=== PATIENT | female | born 2000 | race Hispanic/Latino ===

== ENCOUNTER 2024-08-12 01:42 | Day surgery (SDC) | payer BC ==
[2024-08-12] MEDS ORDERED: hydrALAZINE 20 MG/ML VIAL SLOW IVP PRN (01:56)
[2024-08-12 02:06] VITALS: BMI 35.9
[2024-08-12] MEDS: Promethazine 25 MG TAB PO SCH (02:42)
[2024-08-12] MEDS: Acetaminophen 500 MG TAB PO SCH (02:43)
== END 2024-08-12 06:05 | disposition home or self-care (01) ==
LOC: CSHLD/OP 01:42
PROVIDERS: ATTEND Student in an Organized Health Care Education/Training Program
DX: O47.1 False labor at or after 37 completed weeks of gestation (principal); O98.513 Other viral diseases complicating pregnancy, third trimester; B00.9 Herpesviral infection, unspecified; Z79.899 Other long term (current) drug therapy; Z90.89 Acquired absence of other organs; Z3A.39 39 weeks gestation of pregnancy
CPT/HCPCS: 96360; 99283; Q0169

== ENCOUNTER 2024-08-13 14:47 | Inpatient (IN) | payer BC ==
[2024-08-13] MEDS ORDERED: Ondansetron PF 4 MG/2 ML Vial IVP PRN ×2 (15:14→16:33)
[2024-08-13] MEDS ORDERED: Misoprostol 200 MCG TAB PR PRN (15:14)
[2024-08-13] MEDS ORDERED: Acetaminophen 500 MG TAB PO PRN (15:14)
[2024-08-13] MEDS ORDERED: hydrALAZINE 20 MG/ML VIAL SLOW IVP PRN (15:14)
[2024-08-13] MEDS ORDERED: Methylergonovine 0.2 MG/ML VIAL IM PRN (15:14)
[2024-08-13] MEDS ORDERED: Ibuprofen 800 MG TAB PO PRN (15:14)
[2024-08-13] MEDS ORDERED: Lidocaine 1% (PF) 30 ML VIAL SC PRN (15:14)
[2024-08-13] MEDS ORDERED: Promethazine HCl 25 MG/ML VIAL IM PRN ×2 (15:14→16:33)
[2024-08-13] MEDS ORDERED: Carboprost 250 MCG/ML AMP IM PRN (15:14)
[2024-08-13] MEDS ORDERED: Diphenoxylate HCl/Atropine Tablet PO PRN (15:14)
[2024-08-13] MEDS ORDERED: Oxytocin 30 units/NS 500 ML 500 ML IV SCH (15:15)
[2024-08-13 15:48] LABS: Hematocrit 35.4 % (34.9-44.5); Hemoglobin 11.5 g/dL (12.0-15.5); Mean Corpuscular HGB CONC 32.5 g/dL (32.0-36.0); Mean Corpuscular Hemoglobin 25.3 pg (27.0-33.0); Mean Platelet Volume 9.8 fL (7.4-10.4); Platelet Count 270 10x3/uL (150-450); RBC Distribution Width 15.8 % (11.5-14.5); Red Blood Cell (RBC) Count 4.54 10x6/uL (3.90-5.03); White Blood Cell (WBC) Count 12.42 10x3/uL (3.5-10.5)
[2024-08-13 16:32] LABS: HBsAg Index 0.18 S/CO (0-0.99); Hep B Surf Ag - L&D Non-Reactive S/CO (NonReactive); Syphilis Antibody Nonreactive (Nonreactive); Syphilis Antibody Index 0.04 S/CO (<1.00 Non-Reactive)
[2024-08-13] MEDS ORDERED: ePHEDrine Sulfate 50 MG/10 ML VIAL SLOW IVP PRN (16:33)
[2024-08-13] MEDS ORDERED: diphenhydrAMINE 50 MG/ML VIAL IVP PRN (16:33)
[2024-08-13] MEDS ORDERED: Moisturizing Cream (Eucerin) 113 GM JAR TOP PRN (16:33)
[2024-08-13] MEDS ORDERED: Naloxone HCl 0.4 mg/ml Vial IVP PRN ×2 (16:33)
[2024-08-13] MEDS ORDERED: Lactated Ringer's 500 ML IV PRN (16:33)
[2024-08-13] MEDS ORDERED: Communication Order-Pharmacy FS SCH (16:45)
[2024-08-13] MEDS ORDERED: Bupivacaine 0.25% HCL 30 ML VIAL ONE (17:00)
[2024-08-13] MEDS: fentaNYL 2 mcg/Ropivacaine 0.2% Epidural 100 ML CADD EPIDURAL SCH (17:52)
[2024-08-13] MEDS: Lactated Ringer's 1,000 ML IV SCH (17:52)
[2024-08-13] MEDS: fentaNYL/Ropivacaine Epidural 100 ML ONE (17:52)
[2024-08-13 21:54] VITALS: BMI 36.0
[2024-08-14] MEDS: Oxytocin 30 units/NS 500 ML 500 ML IV SCH (01:57)
[2024-08-14] MEDS ORDERED: hydrALAZINE 20 MG/ML VIAL SLOW IVP PRN (02:19)
[2024-08-14] MEDS ORDERED: Bisacodyl 10 MG SUPP PR PRN (02:19)
[2024-08-14] MEDS ORDERED: Milk Of Magnesia 30 ML UDCUP PO PRN (02:19)
[2024-08-14] MEDS ORDERED: diphenhydrAMINE 25 MG CAP PO PRN (02:19)
[2024-08-14] MEDS: Acetaminophen 325 MG TAB PO PRN (02:29)
[2024-08-14] MEDS: Ibuprofen 800 MG TAB PO SCH (06:26)
[2024-08-14] MEDS: Ferrous Sulfate 325 MG TAB PO SCH (09:26)
[2024-08-14] MEDS: Docusate 100 MG CAP PO SCH (09:28)
[2024-08-14] MEDS: Prenatal Vitamin 1 TAB PO SCH (09:28)
[2024-08-14] MEDS ORDERED: Zolpidem Tartrate 5 MG TAB PO PRN (17:00)
[2024-08-15 02:33] LABS: Hematocrit 32.6 % (34.9-44.5); Hemoglobin 10.1 g/dL (12.0-15.5); Mean Corpuscular Hemoglobin 24.6 pg (27.0-33.0); Mean Corpuscular Volume 79.5 fL (81.6-98.3); Mean Platelet Volume 10.6 fL (7.4-10.4); Platelet Count 241 10x3/uL (150-450); RBC Distribution Width 15.9 % (11.5-14.5); White Blood Cell (WBC) Count 11.47 10x3/uL (3.5-10.5)
[2024-08-15] MEDS: Boostrix 0.5 ML (Tdap) VIAL (>/=7 yrs of age) IM ONE (10:49)
[2024-08-15 12:48] VITALS: BP 116/79; TEMP 98.3
== END 2024-08-15 15:45 | disposition home or self-care (01) | DRG 806 ==
LOC: CSHLD/OP 14:47 → CSHLD 15:13 → CSHPED 08-14 04:22 → UNDODISIN 08-15 13:41
PROVIDERS: ADMIT Student in an Organized Health Care Education/Training Program; ATTEND Student in an Organized Health Care Education/Training Program
PROC: 10E0XZZ Delivery of Products of Conception, External Approach (ICD-10-PCS; principal; 2024-08-14)
PROC: 0UQGXZZ Repair Vagina, External Approach (ICD-10-PCS; 2024-08-14)
DX: O98.52 Other viral diseases complicating childbirth (principal); O71.4 Obstetric high vaginal laceration alone; Z37.0 Single live birth; B00.9 Herpesviral infection, unspecified; Z3A.39 39 weeks gestation of pregnancy
CPT/HCPCS: 36415; 51702; 85027; 86780; 86850; 86900; 86901; 87340; 99285; J0665; J2590; J7120